=== PATIENT | female | born 1990 | race Hispanic/Latino ===

== ENCOUNTER 2025-04-21 13:02 | Emergency (ER) | payer OTHER, BC ==
[~2025-04-21] VITALS: Ht 167.6 cm; Wt 103.0 kg
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
[2025-04-21 14:33] VITALS: BP 131/78; PULSE 66; RESP 20; TEMP 97.2; O2SAT 100
--- NOTE | 2025-04-21 15:25 | NUR ---
PATIENT LEFT ER WITHOUT RECEIVING DISCHARGE INSTRUCTIONS AND WITHOUT SIGNING DISCHARGE FORM.
== END 2025-04-21 15:31 | disposition home or self-care (01) ==
LOC: EDH 13:02
DX: S39.012A Strain of muscle, fascia and tendon of lower back, initial encounter (principal); V43.52XA Car driver injured in collision with other type car in traffic accident, initial encounter; Y93.I9 Activity, other involving external motion; Y92.488 Other paved roadways as the place of occurrence of the external cause; Y99.8 Other external cause status
CPT/HCPCS: 72100; 99283